=== PATIENT | female | born 1990 | race Caucasian/White ===

== ENCOUNTER → 2022-06-10 | Outpatient (CLI) | payer OTHER, SELFPAY ==
--- NOTE | 2022-06-10 14:37 | BI_ITS ---
MAMMOGRAPHY - BILATERAL DIAGNOSTIC REASON FOR EXAM: Female, 32 years old. Right breast lump. PERTINENT HISTORY: Non-contributory. TECHNIQUE: Digital bilateral breast thony (3D mammographic acquisition) in the CC and MLO projections. 2-D mediolateral oblique (MLO) and craniocaudad (CC) views of both breasts were obtained. CAD: Full Field Digital Mammography with Computer Added Detection was performed. COMPARISON: None. Baseline examination. FINDINGS: Breast Composition: The breasts are extremely dense, which lowers the sensitivity of mammography. There are no dominant masses or suspicious calcifications. No other significant abnormalities are identified. BI/DIAG MAMM W/CAD, BILAT IMPRESSION: Negative diagnostic mammogram. With the patient''s history of a right breast lump, targeted ultrasound is recommended. ASSESSMENT CATEGORY: BIRADS Category 0: Incomplete. Need additional imaging evaluation. A letter regarding these results will be sent to the patient by the facility within 30 days. Approximately 10% of breast cancers are not detected by mammography. A normal mammogram should not delay biopsy of a clinically suspicious abnormality. Electronically Signed: Alexis Lagos MD at 15:43 EDT ,
--- NOTE | 2022-06-10 14:37 | US_ITS ---
STUDY: ULTRASOUND BREAST - RIGHT REASON FOR EXAM: Female, 32 years old. Patient felt a lump in the upper outer quadrant of the right breast during her menstrual cycle. TECHNIQUE: Axial and longitudinal images of the RIGHT breast were performed with a high resolution ultrasound transducer. # OF IMAGES: 10 COMPARISON: Comparison is made with prior mammogram done earlier today. FINDINGS: RIGHT Breast: The upper-outer quadrant of the right breast was examined with ultrasound. There is dense fibroglandular tissue. There is a 5 mm x 5 mm x 4 mm cyst at the 11 o''clock position of the breast at 4 cm from the nipple. US/Breast Limited Unilateral IMPRESSION: 5 mm x 5 mm x 4 mm cyst at the 11:00 position of the breast at 4 cm from nipple. ASSESSMENT CATEGORY: BIRADS Category 2: Benign. A letter regarding these results will be sent to the patient by the facility within 30 days. Electronically Signed: Alexis Lagos MD at 9:02 EDT ,
== END | disposition home or self-care (01) ==
LOC: OPBI 14:34
PROVIDERS: Referring Provider Nurse Practitioner Family; Visit Provider Nurse Practitioner Family
DX: N63.11 Unspecified lump in the right breast, upper outer quadrant (principal); R22.31 Localized swelling, mass and lump, right upper limb
CPT/HCPCS: 76642; 77062; 77066; G0279